=== PATIENT | male | born 1980 | race Caucasian/White ===

== ENCOUNTER 2022-03-18 12:02 | Emergency (ER) | payer SELFPAY ==
[~2022-03-18] VITALS: Ht 177.8 cm; Wt 81.6 kg
--- NOTE | 2022-03-18 12:02 | NUR ---
BROUGHT IN BY SINA RICHMOND AND PLACED IN [facility], WILL ASSUME CARE.
[2022-03-18 12:05] VITALS: BP_SYST 127
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
--- NOTE | 2022-03-18 12:37 | NUR ---
Patient given written and verbal discharge instructions and verbalizes understanding. ER MD discussed with patient the results and treatment provided. Patient in stable condition. ID arm band removed. Rx of NONE given. Patient educated on pain management and to follow up with PMD. Pain Scale 0/10. Opportunity for questions provided and answered. Medication side effect fact sheet provided.
== END 2022-03-18 12:37 ==
LOC: SED 12:02
DX: J68.9 Unspecified respiratory condition due to chemicals, gases, fumes and vapors (principal)
CPT/HCPCS: 71045; 99283